=== PATIENT | female | born 1985 | race Caucasian/White ===

== ENCOUNTER 2017-01-10 14:19 | Emergency (ER) | payer OTHER ==
[~2017-01-10] VITALS: Ht 162.6 cm; Wt 104.3 kg
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
[~2017-01-10 14:19] MED LIST: AMOXICILLIN500 M1 PO; CIPRO PO; FLEXERIL10 MG; FLEXERIL10 MG PO; LORTAB 5/500 TA1 TA1 PO; MEDROL DOSEPAK4 MG; MEDROL DOSEPAK4 MG PO; MOTRIN20 MG/ML PO; ORUDIS75 M1; ORUDIS75 M1 PO; TYLENOL #3 PO
== END 2017-01-10 17:19 | disposition home or self-care (01) ==
LOC: CED 14:19 → CFTX 14:19
DX: S83.91XA Sprain of unspecified site of right knee, initial encounter (principal); S20.211A Contusion of right front wall of thorax, initial encounter; I10 Essential (primary) hypertension; E78.5 Hyperlipidemia, unspecified; F41.9 Anxiety disorder, unspecified; V43.62XA Car passenger injured in collision with other type car in traffic accident, initial encounter
CPT/HCPCS: 71020; 73562; 99283